=== PATIENT | male | born 1985 | race Caucasian/White ===

== ENCOUNTER 2018-05-02 19:40 | Observation (INO) ==
[2018-05-02] MEDS ORDERED: 0.9 % Sodium Chloride 1,000 ML IVC ONE (19:51)
[2018-05-02 20:15] LABS: Basophils % 0.3 %; Eosinophils % 0.6 %; Hematocrit 38.9 % (37.5-50.1); Hemoglobin 13.3 g/dL (12.9-16.9); Immature Granulocytes % 0.4 % (0-4); Lymphocytes # 1.1 K/mcL (0.6-4.6); Lymphocytes % 15.5 %; Mean Corpuscular HGB Conc 34.2 g/dL (31.6-35.5); Mean Corpuscular Hemoglobin 29.9 pg (28.0-33.3); Mean Corpuscular Volume 87.4 fL (83.0-100.0); Mean Platelet Volume 9.1 fL (9.4-12.4); Monocytes # 0.3 K/mcL (0.0-1.3); Monocytes % 4.8 %; Neutrophils # 5.4 K/mcL (1.6-8.9); Platelet Count 204 K/mcL (140-400); Red Blood Count 4.45 M/mcL (4.19-5.50); Red Cell Distribution Width 13.3 % (11.5-14.5); Segmented Neutrophils % 78.4 %
[2018-05-02 20:20] LABS: INR 1.1; Prothrombin Time 11.9 Seconds (9.4-12.1)
[2018-05-02 20:23] LABS: Activated Partial Thrombo Time 25.3 Seconds (26.0-36.0)
--- NOTE | 2018-05-02 20:25 | Emergency Department Note ---
Disposition Clinical Impression: Seizure, Intoxication Altered mental status Qualifiers: Altered mental status type: unspecified Qualified Code(s): R41.82 - Altered mental status, unspecified Disposition: Admitted As Inpatient Condition: Good Referrals: Tayler Mercado CNP [Primary Care Provider] - Forms: ED Satisfaction Letter General Adult HPI - General Chief complaint: ED Seizure Stated complaint: previously unresponsive Time Seen by Provider: 05/02/18 19:47 Source: patient, EMS Mode of arrival: EMS Limitations: no limitations Nursing Notes Reviewed: Yes Vital Signs Reviewed: Yes - History of Present Illness HPI Narrative: 32-year-old male history of chronic back issues who presents to the ER with a complaint of initially unresponsive. History is obtained by the patient's brother who is EMS here. States that he went over to check on his mother after he did not return a phone call. Found him unresponsive in the recliner. States that they checked his sugar twice and it was 16. He received IM glucagon and improved. His repeat was 116. States that on the way here he had a 3 minute generalized tonic-clonic seizure. Reports that he last been seen about an hour ago when he was mowing his grass. He had a bottle of Everclear in the room and believes he had 2 cups. Reports that he had seizures before associated with drinking. He is not on antiepileptic medications. The patient presents alert and oriented 3 however drowsy. He does follow commands. He voices no complaints except for feeling cold at this time. Pt Subjective Complaint: Unresponsive Onset (ago): unknown Pain Scale: 0 Improves with: nothing Worsens with: nothing Associated symptoms: Reports: denies other symptoms Treatments Prior to Arrival: none - Related Data Home Medications Medication Instructions Recorded Confirmed Gabapentin [Neurontin] 600 mg PO TID 05/02/18 05/02/18 Allergies Allergy/AdvReac Type Severity Reaction Status Date / Time tramadol Allergy Anaphylaxis Verified 01/04/17 09:50 All systems ED: reviewed and negative except as stated. Cardiovascular: Denies: chest pain Respiratory: Denies: dyspnea Gastrointestinal: Denies: abdominal pain, nausea, vomiting Musculoskeletal: Reports: back pain (Chronic) Neurological: Reports: other (Seizure). Denies: headache, numbness, paresthesias Past Medical History - Past Medical History Attestation: Yes The following information was validated with the patient. Source: patient, obtained from family Medical history: Reports: diabetes Psychiatric history: Reports: no psych history - Social History Smoking Status: Former smoker Smokeless Tobacco Status: No Alcohol use: Reports: occasionally Drug use: Reports: none Physical Exam - General Limitations: no limitations General appearance: alert, other (Somnolent) - Head Head exam: atraumatic, normocephalic, normal inspection - Eye Eye exam: Present: normal appearance, PERRL, EOMI - ENT ENT exam: normal exam - Neck Neck exam: Present: normal inspection - Chest Chest inspection: Present: normal inspection, symmetric chest wall rise - Respiratory Respiratory exam: Present: normal lung sounds bilaterally - Cardiovascular Cardiovascular exam: Present: regular rate, normal rhythm, normal heart sounds - Abdominal Exam Abdominal exam: Present: soft, Non-Tender. Absent: tenderness, distention, rigidity - Extremities Exam Extremities exam: Present: normal inspection, full ROM - Expanded Upper Extremity Exam Shoulder exam: Present: normal inspection, full ROM Arm exam: Present: normal inspection, full ROM Elbow exam: Present: normal inspection, full ROM Forearm/Wrist exam: Present: normal inspection, full ROM Hand exam: Present: normal inspection, full ROM - Expanded Lower Extremity Exam Hip/Pelvis exam: Present: normal inspection, full ROM Upper leg exam: Present: normal inspection, full ROM Knee exam: Present: normal inspection, full ROM Lower leg exam: Present: normal inspection, full ROM Ankle exam: Present: normal inspection, full ROM Foot/toe exam: Present: normal inspection, full ROM Neurovascular/Tendon exam: Absent: motor deficit, sensory deficit - Neurological Exam Neurological exam: Present: alert, oriented X3, CN II-XII intact - Expanded Neurological Exam Patient oriented to: Present: person, place, time Cranial nerves: EOM function (II, III, IV, ): Normal, facial sensation (V): Normal, spinal accessory function (XI): Normal, tongue deviation (XII): Normal Motor strength - LUE: 5/5 Motor strength - RUE: 5/5 Motor strength - LLE: 5/5 Motor strength - RLE: 5/5 Sensory exam upper extremity: light touch: Normal Sensory exam lower extremity: light touch: Normal Coma Scale Eye Opening: Spontaneous Coma Scale Motor Response: Obeys Commands Coma Scale Verbal Response: Oriented Coma Scale Total: 15 - Skin Skin exam: Present: warm, dry Course Course Narrative: Patient seen and examined. Vital signs reviewed. He did receive 5 mg of IV Versed prior to arrival for seizure. He is somnolent here whether or not this is secondary to a post ictal state, alcohol withdrawal or from Versed is to be determined. Plan for CT of his head, EKG, labs, likely admission for altered mental status and initially unresponsive. Vital Signs Temperature 97.7 F 05/02/18 19:41 Pulse Rate 97 05/02/18 19:41 Respiratory Rate 20 05/02/18 19:41 Blood Pressure 142/98 05/02/18 19:41 O2 Sat by Pulse Oximetry 100 05/02/18 19:41 Temperature 97.7 F 05/02/18 19:41 Pulse Rate 94 05/02/18 20:24 Respiratory Rate 16 05/02/18 20:24 Blood Pressure 121/97 05/02/18 20:24 O2 Sat by Pulse Oximetry 100 05/02/18 20:24 Oxygen Delivery Oxygen Delivery Room Air Medical Decision Making - MDM Narrative Medical decision making narrative: 32-year-old male presenting to the ER being unresponsive and hypoglycemic. Initially 16 on first check by responders. Currently not on any insulin therapy. He also had alcohol open there. He did have one seizure in route abated with Versed. It sounds like he has had seizures before with alcohol ingestion. He is alert and oriented 3 here. He is somnolent likely multifactorial from potential seizure as well as Versed administration. He has no focal deficits. Head CT is negative for acute findings. His labs are grossly unremarkable demonstrating that he is intoxicated. Patient admitted to the hospitalist service. - Lab Data Lab results reviewed: Yes I reviewed the patient's lab results. Result diagrams: 05/02/18 20:03 05/02/18 20:03 Lab Results 05/02/18 05/02/18 05/02/18 Range/Units 19:44 20:03 20:03 WBC 6.9 (4.3-11.1) K/mcL RBC 4.45 (4.19-5.50) M/mcL Hgb 13.3 (12.9-16.9) g/dL Hct 38.9 (37.5-50.1) % MCV 87.4 (83.0-100.0) fL MCH 29.9 (28.0-33.3) pg MCHC 34.2 (31.6-35.5) g/dL RDW 13.3 (11.5-14.5) % Plt Count 204 (140-400) K/mcL MPV 9.1 L (9.4-12.4) fL Immature Gran % 0.4 (0-4) % Seg Neutrophils % 78.4 % Lymphocytes % 15.5 % Monocytes % 4.8 % Eosinophils % 0.6 % Basophils % 0.3 % Neutrophils # 5.4 (1.6-8.9) K/mcL Lymphocytes # 1.1 (0.6-4.6) K/mcL Monocytes # 0.3 (0.0-1.3) K/mcL Eosinophils # 0.0 (0.0-0.6) K/mcL Basophils # 0.0 (0.0-0.2) K/mcL PT 11.9 (9.4-12.1) Seconds INR 1.1 APTT 25.3 L (26.0-36.0) Seconds Sodium (136-145) mEq/L Potassium (3.5-5.1) mEq/L Chloride (98-107) mEq/L Carbon Dioxide (23-29) mEq/L BUN (6-20) mg/dL Creatinine (0.70-1.30) mg/dL Est GFR ( Amer) (> 60) Est GFR (Non-Af Amer) (> 60) BUN/Creatinine Ratio (6-26) Glucose (70-105) mg/dL POC Glucose 110 H (70-99) mg/dL Calculated Osmolality (280-300) Calcium (8.6-10.3) mg/dL Total Bilirubin (0.3-1.0) mg/dL Direct Bilirubin (0.0-0.2) mg/dL Indirect Bilirubin (0.0-1.2) mg/dL AST (13-39) Units/L ALT (7-52) Units/L Alkaline Phosphatase (34-104) Units/L Ammonia (16-53) mcmol/L Creatine Kinase (30-223) Units/L Troponin I (< 0.04) ng/mL Serum Total Protein (6.4-8.9) g/dL Albumin (3.5-5.7) g/dL Globulin (2.4-3.5) g/dL Albumin/Globulin Ratio (1.1-2.2) TSH (0.340-5.600) mcIU/mL Ethyl Alcohol (Less than 10) mg/dL 05/02/18 05/02/18 Range/Units 20:03 20:03 WBC (4.3-11.1) K/mcL RBC (4.19-5.50) M/mcL Hgb (12.9-16.9) g/dL Hct (37.5-50.1) % MCV (83.0-100.0) fL MCH (28.0-33.3) pg MCHC (31.6-35.5) g/dL RDW (11.5-14.5) % Plt Count (140-400) K/mcL MPV (9.4-12.4) fL Immature Gran % (0-4) % Seg Neutrophils % % Lymphocytes % % Monocytes % % Eosinophils % % Basophils % % Neutrophils # (1.6-8.9) K/mcL Lymphocytes # (0.6-4.6) K/mcL Monocytes # (0.0-1.3) K/mcL Eosinophils # (0.0-0.6) K/mcL Basophils # (0.0-0.2) K/mcL PT (9.4-12.1) Seconds INR APTT (26.0-36.0) Seconds Sodium 138 (136-145) mEq/L Potassium 3.8 (3.5-5.1) mEq/L Chloride 105 (98-107) mEq/L Carbon Dioxide 23 (23-29) mEq/L BUN 16 (6-20) mg/dL Creatinine 0.73 (0.70-1.30) mg/dL Est GFR ( Amer) > 60 (> 60) Est GFR (Non-Af Amer) > 60 (> 60) BUN/Creatinine Ratio 22 (6-26) Glucose 119 H (70-105) mg/dL POC Glucose (70-99) mg/dL Calculated Osmolality 288 (280-300) Calcium 8.8 (8.6-10.3) mg/dL Total Bilirubin 0.6 (0.3-1.0) mg/dL Direct Bilirubin 0.1 (0.0-0.2) mg/dL Indirect Bilirubin 0.5 (0.0-1.2) mg/dL AST 18 (13-39) Units/L ALT 16 (7-52) Units/L Alkaline Phosphatase 36 (34-104) Units/L Ammonia 27 (16-53) mcmol/L Creatine Kinase 109 (30-223) Units/L Troponin I < 0.03 (< 0.04) ng/mL Serum Total Protein 6.3 L (6.4-8.9) g/dL Albumin 4.6 (3.5-5.7) g/dL Globulin 1.7 L (2.4-3.5) g/dL Albumin/Globulin Ratio 2.7 H (1.1-2.2) TSH 0.992 (0.340-5.600) mcIU/mL Ethyl Alcohol 172 H (Less than 10) mg/dL - Radiology Data Radiology results reviewed: Yes I reviewed the patient's radiology results. Chest X-Ray 05/02/18 19:51 IMPRESSION: No acute cardiopulmonary disease. D/ / Jerzy Mckenna MD / Jerzy Mckenna MD Interpreting Provider: Jerzy Mckenna MD Head CT 05/02/18 19:52 IMPRESSION: No acute intracranial abnormality. D/ / James Stephenson MD / James Stephenson MD Interpreting Provider: James Stephenson MD - EKG Data EKG #1 EKG attestation: Yes I reviewed and interpreted this EKG. EKG results narrative: EKG demonstrates sinus rhythm with a rate of 94 bpm. Normal axis. Normal intervals. Normal R-wave progression. RSR pattern septal leads. No gross ST elevations or depressions. No acute ischemic findings. No significant changes from previous EKG dated 11/26/09. S.B.A.R. - S.B.A.R. Situation: Demographics, MOA Background: Presenting Complaint, Relevant PMH, Meds, & Allergies Assessment: Course and respsone to treatment, Exam Concerns, Patient/Family Expectation, Pertinant Lab Results Recommendation: Barrier(s) to disposition, Recommendation based on pending studies, treatments, or consults S.B.A.R. Report Given to: Dr. Abhinav Rueda Repor Time: 21:24 Attestation Statement - Attestation Attestation: I examined this patient and my medical decision-making was reviewed with the Resident Physician, Dr. Sterling. I agree with the documented findings, disposition and treatment plan as described except to the extent set forth below. Patient is a 32-year-old white male who presents emergency permit today by EMS after his brother found him unresponsive at home. Patient's brother states he pulled into the driveway he lives near by his brother, saw the lawnmower running in the yard the door was open and the patient was lying on the floor unresponsive. Patient does not member how he got back into the house the last thing he remembers is mowing the yard. His brother is in EMS medic and attempted sternal rub and he was unresponsive did not check and it was 14 patient was given glucagon and sugar with increased responsiveness. Patient ultimately had a generalized tonic-clonic seizure was given 5 mg of Versed and arrived to the ED awake verbally responsive without focal neuro deficits but drowsy. Patient denies any complaints no headaches no chest pain or shortness of breath no nausea vomiting and no complaints of pain related to any fall or collapse. His brother states that he found Everclear and patient admits to having 2 cups of this which she self medicates for back pain. Brother denies any chronic alcohol history. He does state that he has a history of labile blood sugars. I agree with patient's physical exam findings as documented, vital signs are stable. Patient underwent lab evaluation chest x-ray EKG and CT head. Patient positive EtOH on board blood sugars stable, CT head was unremarkable remainder of workup the ED is unremarkable at this time he has had no recurrent seizure activity. Patient will be admitted for further evaluation case was discussed with hospitalist service patient hemodynamically stable at this time.
[2018-05-02 20:38] LABS: Troponin I < 0.03 ng/mL (< 0.04)
[2018-05-02 20:40] LABS: Alanine Aminotransferase 16 Units/L (7-52); Albumin 4.6 g/dL (3.5-5.7); Albumin/Globulin Ratio 2.7 (1.1-2.2); Alkaline Phosphatase 36 Units/L (34-104); Aspartate Amino Transferase 18 Units/L (13-39); BUN/Creatinine Ratio 22 (6-26); Bilirubin,Direct 0.1 mg/dL (0.0-0.2); Bilirubin,Indirect 0.5 mg/dL (0.0-1.2); Bilirubin,Total 0.6 mg/dL (0.3-1.0); Blood Urea Nitrogen 16 mg/dL (6-20); Calcium 8.8 mg/dL (8.6-10.3); Carbon Dioxide 23 mEq/L (23-29); Chloride 105 mEq/L (98-107); Creatine Kinase 109 Units/L (30-223); Ethanol 172 mg/dL (Less than 10); Globulin 1.7 g/dL (2.4-3.5); Glucose 119 mg/dL (70-105); Osmolality,Calculated 288 (280-300); Potassium 3.8 mEq/L (3.5-5.1); Sodium 138 mEq/L (136-145); Total Protein 6.3 g/dL (6.4-8.9); eGFR For Non-African Americans > 60 (> 60)
[2018-05-02 20:52] LABS: Thyroid Stimulating Hormone 0.992 mcIU/mL (0.340-5.600)
[2018-05-02 22:07] LABS: Bilirubin,Urine Negative (Negative); Blood,Urine Negative (Negative); Clarity,Urine Clear (Clear); Color,Urine Yellow (Yellow); Glucose,Urine (UA) Normal (Normal); Ketones,Urine Negative (Negative); Leukocyte Esterase,Urine Negative (Negative); Nitrite,Urine Negative (Negative); PH,Urine 6.5 pH Units (5.0-8.0); Protein,Urine Negative (Neg-Trace); Specific Gravity,Urine 1.009 (1.010-1.025); Urobilinogen,Urine Normal (Normal)
[2018-05-02 22:25] LABS: Amphetamine Screen,Urine Negative ng/mL (Cutoff=1000); Barbiturate Screen,Urine Negative ng/mL (Cutoff=200); Benzodiazepines Screen,Urine Positive ng/mL (Cutoff=200); Cannabinoid Screen,Urine Negative ng/mL (Cutoff = 50); Cocaine Screen,Urine Negative ng/mL (Cutoff= 300); Opiate Screen,Urine Negative ng/mL (Cutoff=300); Phencyclidine Screen,Urine Negative ng/mL (Cutoff=25)
[2018-05-03] MEDS: D5% in 0.9% NACL 1,000 ML IVC SCH ×2 (01:18→11:08)
[2018-05-03] MEDS ORDERED: *HR* LORazepam 2 MG/ML VIAL IVP PRN (02:10)
[2018-05-03] MEDS ORDERED: Acetaminophen 325 MG TABLET PO PRN (02:10)
[2018-05-03] MEDS ORDERED: Naloxone 0.4 MG/ML INJ IVP PRN (02:10)
--- NOTE | 2018-05-03 03:41 | Internal Med History&Physical ---
Date of Encounter: 05/03/18 Time of Encounter: 01:30 Internal Medicine - H&P: HPI Chief complaint: unresponsiveness; hypoglycemia Admitted From: Emergency Dept Plans for Post Hospital Care: Home History of present illness: Mr. Stveens is a 32 year old male who presents to the ER tonight after being found down and unresponsive at home by his brother. EMS was called and he reportedly had a glucose of 16. He was given dextrose and transferred to the ER by EMS. He reportedly had a witnessed seizure in the ambulance. Workup in ER revealed negative findings except for elevated alcohol level. CT of the head was negative and his repeat glucose was 110. He was subsequently admitted to hospitalist service. Upon my assessment of the patient, he was sleeping but easily arousable. He was a little groggy but appropriate and oriented 3. His girlfriend was present and confirmed above history. Regarding his alcohol intake, he admitted to having a few shots/glasses of Everclear yesterday while mowing the lawn. He denies daily, excessive alcohol intake. He does drink alcohol on occasion, mostly on weekends. He and his girlfriend both deny any prior history of excessive abuse and/or withdrawal from alcohol. He denies any illicit drug use. His girlfriend states he has had some issues in the past with hypoglycemia. He did not eat much yesterday and was due to eat dinner after mowing the lawn. However, due to the events noted above, he never did eat any meals. He and his girlfriend both confirm that he has been having some GI upset last month with stomach upset and profound diarrhea after any dietary intake. He denies any fevers, chills, night sweats, ill contacts exposure, or recent antibiotic use. He denies any gallbladder problems, heartburn, or history of ulcer disease. He has had some mild epigastric pain for the last month, however. He denies any unintentional weight loss. Past Med Surg Social Fam HX - Past Medical History Attestation: Yes The following information was validated with the patient. Source: patient, old records reviewed, obtained from family Additional medical history: hypoglycemia, scoliosis Psychiatric history: no psych history - Past Surgical History Additional surgical history: back injury, implanted pain pump - Social History Smoking Status: Former smoker Smokeless Tobacco Status: No Alcohol use: occasionally Drug use: none Current living situation: Home, With Family Activity Level: Independent ambulation Recent Out of Country Travel Within the Last 8 Weeks: No - Family History Mother Living Status: Still Living Father Living Status: Still Living Internal Medicine - H&P: Meds Gabapentin [Neurontin] 600 mg PO TID 05/02/18 [History] 3 Allergy/AdvReac Type Severity Reaction Status Date / Time tramadol Allergy Anaphylaxis Verified 01/04/17 09:50 - Constitutional Constitutional: no chills, no fever(s), no night sweats, no weight loss - EENT Eyes: no blurry vision, no change in vision Ears: no ear pain, no tinnitus Nose, mouth and throat: no nasal congestion, no sinus pressure, no sore throat - Cardiovascular Cardiovascular ROS IM: syncope, no chest pain, no dyspnea, no lightheadedness, no palpitations - Respiratory Respiratory: no cough, no hemoptysis, no chest congestion, no excessive phlegm production - Gastrointestinal Gastrointestinal: abdominal pain (epigastric), change in bowel habits, diarrhea , no coffee ground emesis, no heartburn, no hematemesis, no hematochezia, no melena, no nausea, no vomiting - Genitourinary Genitourinary ROS male: no dysuria, no flank pain, no hematuria - Musculoskeletal Musculoskeletal ROS IM: no arthralgias, no back pain - Integumentary Integumentary IM: no rash, no jaundice - Neurological Neurological ROS: convulsions, no dizziness, no focal weakness, no frequent falls, no headache(s) - Psychiatric Psychiatric: no anxiety, no depression - Endocrine Endocrine IM: no cold intolerance, no heat intolerance, no polydipsia, no polyphagia, no polyuria - Allergic/Immunologic Allergic/Immunologic: no wheezing, no GI upset with certain foods - Constitutional Vitals: Temp Pulse Resp BP Pulse Ox 98 F 82 16 110/69 98 05/03/18 03:19 05/03/18 03:19 05/03/18 03:19 05/03/18 03:19 05/03/18 03:19 General appearance: Present: cooperative, A&O X 3, pleasant, no acute distress, answers questions appropriately Exam: no acute distress - Head Head exam: Present: atraumatic, normal inspection - Eye Eye exam: Present: EOMI, PERRL. Absent: scleral icterus Pupils: Present: normal accommodation - ENT ENT exam: Present: mucous membranes dry, normal exam, normal oropharynx - Neck Neck exam general surgery: Present: full ROM, supple. Absent: tenderness, nuchal rigidity, thyromegaly - Respiratory Respiratory exam: Present: CTAB. Absent: chest wall tenderness, rales, rhonchi , wheezes - Cardiovascular Cardiovascular exam: Present: RRR, +S1, +S2. Absent: diastolic murmur, systolic murmur - GI/Abdominal GI/Abdominal exam: Present: normal bowel sounds, soft. Absent: guarding, hepatomegaly, mass, rebound, splenomegaly, tenderness - Extremities Exam Extremities exam: Present: full ROM, warm, radial pulses palpable and symmetrical. Absent: calf tenderness, pedal edema, tenderness - Back Exam Back exam: Absent: CVA tenderness (L), CVA tenderness (R) - Neurological Exam Neurological exam: Present: alert, CN II-XII intact, oriented X3, no focal deficits, strengths equal and symetr throughout - Psychiatric Psychiatric exam: Present: normal affect, normal mood - Skin Skin exam: Present: dry, intact, warm. Absent: rash Internal Med - H&P Results - Labs CBC & Chem 7: 05/02/18 20:03 05/02/18 20:03 Labs: UDS negative except for BZD (received in ambulance for seizure) - EKG Data -: EKG Interpreted by Myself - EKG Data Prior EKG available for review: no EKG comments: 05/03/18 04:01 NSR; no acute ST-T changes - Diagnostic Studies Chest x-ray Status: image reviewed by me (negative) - Assessment and plan (1) Seizure Current Visit: Yes Status: Acute Assessment and plan: 1. Likely due to hypoglycemia. 2. Will order MRI brain, EEG, and neurology consultation. 3. Seizure precautions. (2) Hypoglycemia Current Visit: Yes Status: Acute Assessment and plan: 1. Will monitor with hourly glucose checks for now. 2. IVF with dextrose initiated. 3. Patient will need to eat 3 meals per day with likely snacks in between. May need nutrition consult. 4. If hypoglycemia persists, he may need further GI/endocrine work-up. (3) Intoxication Current Visit: Yes Status: Acute Assessment and plan: 1. Will hydrate with IVF and monitor clinically. 2. Patient and girlfriend deny excessive alcohol use and/or abuse. 3. Will place on CIWA protocol and monitor clinically. 4. Will place on Folate, MVI, thiamine. (4) DVT prophylaxis Current Visit: Yes Status: Acute Assessment and plan: 1. Heparin SQ.
[2018-05-03 04:14] LABS: Basophils % 0.5 %; Eosinophils # 0.1 K/mcL (0.0-0.6); Eosinophils % 2.6 %; Hematocrit 39.1 % (37.5-50.1); Hemoglobin 12.8 g/dL (12.9-16.9); Immature Granulocytes % 0.3 % (0-4); Lymphocytes # 1.5 K/mcL (0.6-4.6); Lymphocytes % 38.5 %; Mean Corpuscular HGB Conc 32.7 g/dL (31.6-35.5); Mean Corpuscular Volume 88.5 fL (83.0-100.0); Mean Platelet Volume 9.5 fL (9.4-12.4); Monocytes # 0.3 K/mcL (0.0-1.3); Monocytes % 7.9 %; Platelet Count 212 K/mcL (140-400); Red Blood Count 4.42 M/mcL (4.19-5.50); Red Cell Distribution Width 13.3 % (11.5-14.5); Segmented Neutrophils % 50.2 %
[2018-05-03 04:34] LABS: Alanine Aminotransferase 13 Units/L (7-52); Albumin 4.1 g/dL (3.5-5.7); Albumin/Globulin Ratio 2.6 (1.1-2.2); Alkaline Phosphatase 35 Units/L (34-104); Amylase 61 Units/L (29-103); Aspartate Amino Transferase 16 Units/L (13-39); BUN/Creatinine Ratio 18 (6-26); Bilirubin,Total 0.5 mg/dL (0.3-1.0); Blood Urea Nitrogen 14 mg/dL (6-20); Calcium 9.1 mg/dL (8.6-10.3); Carbon Dioxide 24 mEq/L (23-29); Chloride 110 mEq/L (98-107); Globulin 1.6 g/dL (2.4-3.5); Glucose 87 mg/dL (70-105); Lipase 10 Units/L (11-82); Magnesium 2.1 mg/dL (1.6-2.6); Osmolality,Calculated 300 (280-300); Potassium 4.3 mEq/L (3.5-5.1); Sodium 145 mEq/L (136-145); Total Protein 5.7 g/dL (6.4-8.9); eGFR For Non-African Americans > 60 (> 60)
[2018-05-03] MEDS ORDERED: Pantoprazole 40 MG VIAL IVP SCH (06:00)
[2018-05-03] MEDS ORDERED: *HR* Heparin 5,000 UNIT/ML VIAL SQ SCH (06:00)
--- NOTE | 2018-05-03 08:30 | Event Note ---
Date of Encounter: 05/03/18 Time of Encounter: 08:30 32 yo M came in with ams with severe hypoglycemia and seizures s/p alcohol consumption Exam NAD this am Plan 1. Seizures unclear etiolgy possibly related to hypoglycemia which was likely alcohol induced. Obtain cortisol , A1c , hypoglycemic panel to investigate for possible etiology of hypogylcemia. May be alcohol induced as patient consumed a very strong drink. Monitor sugars. regular diet. Neuro recs for initiation of antiseizure meds and possible EEG. CT head negative 2. Alcohol abuse. Place on CIWA protocol. Monitor for signs of withdrawal 3. DVT prophylaxis. Heparin
[2018-05-03] MEDS ORDERED: Thiamine (B-1) 100 MG TABLET PO SCH (09:00)
[2018-05-03] MEDS ORDERED: Folic Acid 1 MG TABLET PO SCH (09:00)
[2018-05-03] MEDS ORDERED: Vitamin B Complex/Vit C/Vit E 1 EACH TABLET PO SCH (09:00)
[2018-05-03] MEDS ORDERED: Gabapentin 300 MG CAPSULE PO SCH (09:00)
--- NOTE | 2018-05-03 10:34 | Neurology - Consult Note ---
<AlejoSepideh N - Last Filed: 05/03/18 11:23> Date of Encounter: 05/03/18 Time of Encounter: 10:34 Assessment and Plan (1) Seizure Current Visit: Yes Status: Acute 32-year-old male with episode of profound hypoglycemia and subsequent seizure. Patient reports history of hypoglycemic episodes, but denies any history of seizures and does not recall the events that led to him becoming unresponsive. He denies having access to insulin, denies any new medications. Urine tox was positive for benzos and alcohol, but reportedly patient denies excess alcohol use. Physical examination unremarkable for any focal neurological findings, and EEG was normal. -Suspect patient's syncope, unresponsiveness, and reported seizure may be secondary to hypoglycemic episode. -Patient's urine tox was positive for alcohol and benzodiazepines, no withdrawal symptoms at this time. History of Present Illness Chief complaint: Seizure HPI: Mr. Stevens is a 32 year old male who was admitted to the hospital after being found unresponsive at home. Reportedly patient had a glucose reading of 16 collected by the EMS on site. He also reportedly had a witnessed seizure en route to the hospital. Patient was given dextrose and repeat glucose readings in the ED were within normal range. CT head on admission was negative. Patient reports that he experiences hypoglycemic episodes often, he does not monitor his blood glucose readings, but in the past has used a glucometer from a family member and reported low glucose readings. However he has never had a glucose reading this low before. He states that when he experiences what he believes to be hypoglycemic episodes he becomes weak and lightheaded, the symptoms resolve after he eats. Denies any unilateral weakness, shaking, facial droop, slurred speech, or confusion during these episodes. He does report some changes in vision saying he sees "dots of light ". He denies any previous history of seizures. He does admit to a history of chronic migraines that he experiences on a daily basis at night and in the mornings. He explains that they are usually unilateral however alternate between the left and right side. EKG performed today shows a normal awake and drowsy EEG. Pending MRI. This morning the patient is awake and alert. He reports no similar symptoms overnight. Past Med Surg Social Fam HX - Past Medical History Medical history: diabetes Additional medical history: hypoglycemia, scoliosis Psychiatric history: no psych history - Past Surgical History Additional surgical history: back injury, implanted pain pump - Social History Smoking Status: Former smoker Smokeless Tobacco Status: No Alcohol use: occasionally Drug use: none - Family History Mother Living Status: Still Living Father Living Status: Still Living Medications and Allergies Gabapentin [Neurontin] 600 mg PO TID 05/02/18 [History] Ibuprofen 800 mg PO TID 05/03/18 [History] Oxybutynin Chloride [Ditropan Xl] 10 mg PO BID 05/03/18 [History] 3 Allergy/AdvReac Type Severity Reaction Status Date / Time tramadol Allergy Anaphylaxis Verified 01/04/17 09:50 All Systems: The remainder of the systems were reviewed and are negative - Constitutional Constitutional ROS IM: as per HPI Physical Examination - Vital Signs Vital Signs: Initial Vital Signs Temp Pulse Resp BP Pulse Ox 97.7 F 97 20 142/98 100 05/02/18 19:41 05/02/18 19:41 05/02/18 19:41 05/02/18 19:41 05/02/18 19:41 - Exam Exam: Constitutional: Alert and awake, sitting comfortably in bed, makes poor eye contact, mildly flat affect Neurological: -Cranial nerves: II-XII grossly intact. No facial droop, slurred speech, or any focal neurological deficits. -Upper extremities: sensation and strength are full and intact bilaterally. Biceps reflexes are 2/4 and symmetric. No pronator drift. -Lower extremities: Sensation and strength are full and intact bilaterally. Patellar reflexes are 2/4 and symmetric. Heel to palacios movements are normal. Results - Laboratory Findings CBC and BMP: 05/03/18 03:17 05/03/18 03:17 Abnormal lab findings: Abnormal lab results WBC 3.9 K/mcL (4.3-11.1) L 05/03/18 03:17 Hgb 12.8 g/dL (12.9-16.9) L 05/03/18 03:17 APTT 25.3 Seconds (26.0-36.0) L 05/02/18 20:03 Chloride 110 mEq/L (98-107) H 05/03/18 03:17 Serum Total Protein 5.7 g/dL (6.4-8.9) L 05/03/18 03:17 Globulin 1.6 g/dL (2.4-3.5) L 05/03/18 03:17 Albumin/Globulin Ratio 2.6 (1.1-2.2) H 05/03/18 03:17 Lipase 10 Units/L (11-82) L 05/03/18 03:17 Ur Specific [place] 1.009 (1.010-1.025) L 05/02/18 22:00 U Benzodiazepines Scrn Positive ng/mL (Qnhzht=107) H 05/02/18 22:00 Ethyl Alcohol 172 mg/dL (Less than 10) H 05/02/18 20:03 Consult Discharge Plan - Plan Referrals: [facility] [Provider Group] Tayler Mercado, CONSTRUCTION OPERATIONS MANAGER [Primary Care Provider] - <AmarilysAzarmanohar - Last Filed: 05/03/18 13:35> Date of Encounter: 05/03/18 History of Present Illness HPI: Mr. Stevens is a 32 year old male All Systems: The remainder of the systems were reviewed and are negative Physical Examination - Vital Signs Vital Signs: Initial Vital Signs Temp Pulse Resp BP Pulse Ox 97.7 F 97 20 142/98 100 05/02/18 19:41 05/02/18 19:41 05/02/18 19:41 05/02/18 19:41 05/02/18 19:41 Results - Laboratory Findings CBC and BMP: 05/03/18 03:17 05/03/18 03:17 Abnormal lab findings: Abnormal lab results WBC 3.9 K/mcL (4.3-11.1) L 05/03/18 03:17 Hgb 12.8 g/dL (12.9-16.9) L 05/03/18 03:17 APTT 25.3 Seconds (26.0-36.0) L 05/02/18 20:03 Chloride 110 mEq/L (98-107) H 05/03/18 03:17 Serum Total Protein 5.7 g/dL (6.4-8.9) L 05/03/18 03:17 Globulin 1.6 g/dL (2.4-3.5) L 05/03/18 03:17 Albumin/Globulin Ratio 2.6 (1.1-2.2) H 05/03/18 03:17 Lipase 10 Units/L (11-82) L 05/03/18 03:17 Ur Specific [place] 1.009 (1.010-1.025) L 05/02/18 22:00 U Benzodiazepines Scrn Positive ng/mL (Xtdacr=091) H 05/02/18 22:00 Ethyl Alcohol 172 mg/dL (Less than 10) H 05/02/18 20:03
--- NOTE | 2018-05-03 10:37 | EEG/EMG/Oth Biometrics Report ---
EEG Procedure Report Date of procedure: 05/03/18 EEG Procedure: Routine EEG Procedure Note: This EEG was acquired with standard international 10-20 system with EKG recording. The background EEG activity was characterized by the presence of mixture of alpha, theta and delta activity with best frequency of 12 Hz. The background activity was reactive to eye openings. Sleep stages were not identified during this tracing. Drowsiness was characterized by drop off of posterior dominant Alpha rhythm. There are no electrographic seizures identified during this tracing. There are no epileptiform discharges and focal slowing noted during this recording. Photic stimulation and hyperventilation produced no abnormalities. EKG tracing showed no significant cardiac dysrhythmia. Impression: This is essentially a normal awake and drowsy EEG. Clinical Correlation: Normal EEGs, however, do not exclude epilepsy. Clinical correlation is advised.
[2018-05-03 11:39] VITALS: BP 122/85
--- NOTE | 2018-05-03 11:47 | Discharge Summary ---
Orders not resulted at time of discharge: Pending orders 05/03/18 02:10 MR head/brain wo con [MR] Routine 05/03/18 10:29 Hgb A1C Routine Hypoglycemic Panel Routine Date of Encounter: 05/03/18 Time of Encounter: 11:00 - Discharge Diagnosis (1) Seizure Priority: Primary Status: Acute Assessment and Plan: 32 year old male who presents to the ER tonight after being found down and unresponsive at home by his brother. EMS was called and he reportedly had a glucose of 16. He was given dextrose and transferred to the ER by EMS. He reportedly had a witnessed seizure in the ambulance. Workup in ER revealed negative findings except for elevated alcohol level. CT of the head was negative and his repeat glucose was 110. He was subsequently admitted to hospitalist service. He was assessed wih seizures unclear etiology possibly related to hypoglycemia which was likely alcohol induced. Cortisol and TSH levels came back WNL. Patient denies taking any hypoglycemic agents. A1c and hypoglycemia panel ordered to investigate for other possible causes of hypogylcemia. He also had an EEG done which came back negative and was seen by neurology who determined he doesn't need to be on seizure meds. CT head was also negative He was counseled to follow up with his PCP (2) Intoxication Priority: Primary Status: Acute (3) Hypoglycemia Priority: Primary Status: Acute (4) DVT prophylaxis Priority: Primary Status: Acute Hospital course: Mr. Stevens is a 32 year old male - Time Spent with Patient Total time spent providing and/or coordinating discharge services: - Discharge Medications Home Medications: Gabapentin [Neurontin] 600 mg PO TID 05/02/18 [History] Ibuprofen 800 mg PO TID 05/03/18 [History] Oxybutynin Chloride [Ditropan Xl] 10 mg PO BID 05/03/18 [History] Allergies/Adverse Reactions: 3 Allergy/AdvReac Type Severity Reaction Status Date / Time tramadol Allergy Anaphylaxis Verified 01/04/17 09:50 Date of admission: 05/02/18 22:15 Primary care physician: Tayler Mercado CNP Consults: 05/03/18 04:04 Consult to Neurology [CONS] Routine Consulting Provider: [facility] Reason for Consult: seizure Call Completed: No 05/03/18 10:35 Consult to Interpret Exam [CONS] Routine Consulting Provider: Li,Siyun Consult to Interpret Exam: Interpret EEG - Constitutional Vitals: Temp Pulse Resp BP Pulse Ox 98.1 F 56 15 122/85 98 05/03/18 11:34 05/03/18 11:34 05/03/18 11:34 05/03/18 11:34 05/03/18 11:34 General appearance: Present: cooperative, A&O X 3, pleasant, no acute distress, answers questions appropriately Exam: no acute distress - Head Head exam: Present: atraumatic, normocephalic - Eye Eye exam: Present: PERRL, conjuntiva pink, sclera anicteric Pupils: Present: PERRL - Neck Neck exam general surgery: Present: supple, trachea midline. Absent: lymphadenopathy - Respiratory Respiratory exam: Present: CTAB. Absent: accessory muscle use, rales, rhonchi, wheezes - Cardiovascular Cardiovascular exam: Present: RRR, +S1, +S2. Absent: diastolic murmur, gallop, rubs, systolic murmur - GI/Abdominal GI/Abdominal exam: Present: normal bowel sounds, soft, no peritoneal signs. Absent: distended, tenderness - Extremities Exam Extremities exam: Present: warm, radial pulses palpable and symmetrical. Absent : calf tenderness, cyanotic, pedal edema - Neurological Exam Neurological exam: Present: CN II-XII intact, oriented X3, no focal deficits. Absent: pronater drift, facial droop, speech deficit - Skin Skin exam: Present: dry, intact - Patient Status Disposition: Home, Self-Care Condition: Good - Discharge Instructions Follow Up With: [facility] [Provider Group] Tayler Mercado, VENDING MACHINE MECHANIC [Primary Care Provider] -
[2018-05-03 13:57] LABS: Estimated Average Glucose 100 mg/dl; Hemoglobin A1C 5.1 %
--- NOTE | 2018-05-04 14:00 | Electrocardiograph Report ---
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
[2018-05-08 12:02] LABS: Chlorpropamide NOT DETECTED ng/mL (Cutoff 100); Glimepiride NOT DETECTED ng/mL (Cutoff 5); Glipizide NOT DETECTED ng/mL (Cutoff 5); Glyburide NOT DETECTED ng/mL (Cutoff 5); Nateglinide NOT DETECTED ng/mL (Cutoff 5); Repaglinide NOT DETECTED ng/mL (Cutoff 5); Tolazamide NOT DETECTED ng/mL (Cutoff 100)
[2018-05-08 15:09] LABS: Tolbutamide NOT DETECTED ng/mL (Cutoff 100)
== END 2018-05-03 14:00 | disposition home or self-care (01) ==
LOC: 3BNU 19:40 → EMEROOARM 19:40 → 3BNU 22:52
PROVIDERS: ADMIT Pediatrics; ATTEND Pediatrics

== ENCOUNTER 2018-07-02 19:20 | Observation (INO) ==
--- NOTE | 2018-07-02 19:33 | Emergency Department Note ---
Disposition Clinical Impression: Altered mental status, Weakness Disposition: Admitted As Inpatient Condition: Good General Adult HPI - General Chief complaint: ED Altered Mental Status Stated complaint: AMS Time Seen by Provider: 07/02/18 19:27 Source: patient, EMS Limitations: no limitations - History of Present Illness Pain Scale: 0 - Related Data Home Medications Medication Instructions Recorded Confirmed RX: Gabapentin [Neurontin] 600 mg PO TID 05/02/18 05/03/18 RX: Ibuprofen 800 mg PO TID 05/03/18 05/03/18 RX: Oxybutynin Chloride [Ditropan 10 mg PO BID 05/03/18 05/03/18 Xl] Allergies Allergy/AdvReac Type Severity Reaction Status Date / Time tramadol Allergy Anaphylaxis Verified 01/04/17 09:50 Past Medical History - Past Medical History Medical history: Reports: diabetes Psychiatric history: Reports: no psych history - Social History Smoking Status: Former smoker Smokeless Tobacco Status: No Alcohol use: Reports: occasionally Drug use: Reports: none Physical Exam - General Limitations: no limitations General appearance: lethargic Course Vital Signs Temperature 99.6 F 07/02/18 19:25 Pulse Rate 105 07/02/18 19:25 Respiratory Rate 16 07/02/18 19:25 Blood Pressure 151/111 07/02/18 19:25 O2 Sat by Pulse Oximetry 99 07/02/18 19:25 Temperature 97.6 F 07/02/18 21:53 Pulse Rate 71 07/02/18 21:53 Respiratory Rate 16 07/02/18 21:53 Blood Pressure 130/74 07/02/18 21:53 O2 Sat by Pulse Oximetry 98 07/02/18 21:53 Oxygen Delivery Oxygen Delivery Room Air Medical Decision Making - Lab Data Result diagrams: 07/02/18 19:52 07/02/18 19:52 Lab Results 07/02/18 07/02/18 07/02/18 Range/Units 19:52 19:52 19:52 WBC 5.6 (4.3-11.1) K/mcL RBC 4.21 (4.19-5.50) M/mcL Hgb 12.5 L (12.9-16.9) g/dL Hct 36.8 L (37.5-50.1) % MCV 87.4 (83.0-100.0) fL MCH 29.7 (28.0-33.3) pg MCHC 34.0 (31.6-35.5) g/dL RDW 13.2 (11.5-14.5) % Plt Count 231 (140-400) K/mcL MPV 9.0 L (9.4-12.4) fL PT 12.3 H (9.4-12.1) Seconds INR 1.1 APTT 29.0 (26.0-36.0) Seconds Sodium 134 L (136-145) mEq/L Potassium 4.3 (3.5-5.1) mEq/L Chloride 104 (98-107) mEq/L Carbon Dioxide 24 (23-29) mEq/L BUN 16 (6-20) mg/dL Creatinine 0.81 (0.70-1.30) mg/dL Est GFR ( Amer) > 60 (> 60) Est GFR (Non-Af Amer) > 60 (> 60) BUN/Creatinine Ratio 20 (6-26) Glucose 89 (70-105) mg/dL Calculated Osmolality 279 L (280-300) Calcium 8.8 (8.6-10.3) mg/dL Troponin I < 0.03 (< 0.04) ng/mL Ethyl Alcohol < 10 (Less than 10) mg/dL Critical Care Time Critical Care Time: Yes Total Critical Care Time: 30 Attestation: I examined this patient and my medical decision-making was reviewed with the Resident Physician. I agree with the documented findings, disposition and treatment plan as described except to the extent set forth below. Attestation Statement - Attestation Attestation: I examined this patient and my medical decision-making was reviewed with the Resident Physician. I agree with the documented findings, disposition and treatment plan as described except to the extent set forth below. [id number] time provided Patient arrives by EMS from home. He states he feels diffusely weak and has spasms involving his right side. He feels like he has been like this "for a couple hours." He is a limited historian The patient was evaluated shortly after his arrival to the medical treatment area. Additional information obtained from the paramedics at bedside. The patient tells me that he had a similar episode 2 months ago which I did confirm by reviewing her hospital discharge summaries. It appeared at that time he was hypoglycemic and had a suspected seizure, possibly secondary to alcohol intake. On exam tonight he has nonrhythmic, [id number] intermittent twitching of his right upper and right lower extremity. He is alert. Eyes are open. He does answer questions but slowly. He will move all 4 extremities but appears to do so with increased weakness Stroke alert activated 20:10: Telemedicine consultation initiated. The patient is not a TPA candidate as his symptoms are not consistent with an acute ischemic stroke. The patient will be admitted to the medicine service for observation and further care
[2018-07-02] MEDS ORDERED: Isovue-370 500 ML INFUS..BTL IV ONE (19:34)
--- NOTE | 2018-07-02 19:35 | Emergency Department Note ---
Disposition Clinical Impression: Weakness Altered mental status Qualifiers: Altered mental status type: unspecified Qualified Code(s): R41.82 - Altered mental status, unspecified Disposition: Admitted As Inpatient Condition: Good Referrals: NONE,PCP [Primary Care Provider] - Forms: ED Satisfaction Letter Time of Disposition: 20:34 Altered Mental Status HPI - General Chief Complaint: ED Altered Mental Status Stated Complaint: AMS Time Seen by Provider: 07/02/18 19:27 Source: patient, EMS Mode of arrival: EMS Limitations: no limitations Nursing Notes Reviewed: Yes Vital Signs Reviewed: Yes - History of Present Illness HPI Narrative: 32-year-old male history of diabetes presents to the emergency department via EMS for altered mental status. The patient states this is been going on for the past couple of hours. He is unable to give me his last known well. His girlfriend called for the ambulance but she will not be coming. Reports a history of seizures typically when his blood glucose level is low. His point of care glucose was 91 here. He is reporting weakness and twitching to his right side. Is also having troubles with speech and moving his mouth. He had a similar episode a few months ago. At this time stroke alert was initiated. On evaluation patient was slow to answer questions and follow commands. He was able to follow the commands when asked multiple times. He was able to lift his right arm off the bed. He was unable to lift the left arm up but was able to flex and extend his wrist and elbow. Similar with his lower extremities he was unable to lift it off the bed but was able to flex at the hips and knees. Patient had intact dorsiflexion and plantar flexion equal bilateral strength. No evidence of any trauma. Denies any recreational drug use. - Related Data Home Medications Medication Instructions Recorded Confirmed Gabapentin [Neurontin] 600 mg PO TID 05/02/18 05/03/18 Ibuprofen 800 mg PO TID 05/03/18 05/03/18 Oxybutynin Chloride [Ditropan Xl] 10 mg PO BID 05/03/18 05/03/18 Allergies Allergy/AdvReac Type Severity Reaction Status Date / Time tramadol Allergy Anaphylaxis Verified 01/04/17 09:50 Limitations: ROS unobtainable due to patients medical condition Past Medical History - Past Medical History Source: old records reviewed, nursing notes reviewed Medical history: Reports: diabetes Psychiatric history: Reports: no psych history - Social History Smoking Status: Former smoker Smokeless Tobacco Status: No Alcohol use: Reports: occasionally Drug use: Reports: none Physical Exam - General Limitations: altered mental status General appearance: lethargic, other (Sluggish and slow to respond) - Head Head exam: atraumatic, normocephalic, normal inspection - Eye Eye exam: Present: normal appearance, PERRL, EOMI - Neck Neck exam: Present: normal inspection, trachea midline - Chest Chest inspection: Present: normal inspection, symmetric chest wall rise - Respiratory Respiratory exam: Present: normal lung sounds bilaterally. Absent: respiratory distress, wheezes - Cardiovascular Cardiovascular exam: Present: regular rate, normal rhythm, normal heart sounds - Expanded Cardiovascular Exam Peripheral pulses: 2+: radial (R), radial (L) - Abdominal Exam Abdominal exam: Present: soft, Non-Tender. Absent: tenderness, distention, guarding, rebound, rigidity - Neurological Exam Neurological exam: Present: alert, other (There is occasional intermittent twitching to the right upper extremity that his brief for no more than 2 seconds, non-rhythmic, not tonic-clonic) - Expanded Neurological Exam Motor strength - LUE: 5/5 Motor strength - RUE: 5/5 Motor strength - LLE: 3/5 Motor strength - RLE: 3/5 Upper motor neuron exam: pronator drift: Absent bilaterally Coma Scale Eye Opening: Spontaneous Coma Scale Motor Response: Obeys Commands Coma Scale Verbal Response: Oriented Coma Scale Total: 15 - Psychiatric Psychiatric exam: Present: normal affect, normal mood - Skin Skin exam: Present: warm, dry, intact, normal color Course - Reevaluation(s) Reevaluation #1: Review of his labs are unremarkable. Etiology of his symptoms are unknown. Working diagnosis includes possible seizure post-ictal and less likely stroke. Consideration for possible adverse drug effect. Will add C-peptide to his history of similar presentation with hypoglycemia. - Consultations Consultation #1: Spoke to [place] radiology, no intracranial hemorrhage. The angiogram of the head and neck appeared unremarkable. Spoke to the neurosurgery physician at [facility] and agrees this could be possible seizure but agrees with likely not tPA candidate. Time: 20:08 Consultation #2: Patient was evaluated via tele-stroke by the urologist Dr. Mota, agrees this is not a typical stroke presentation. A neighbor who was with him today had just arrived. States last well-known approximately at 11 o'clock. He knows that the patient was progressively getting worse. He noticed twitching throughout his body and he was feeling gradually more weak. This was not ascribed is a sending weakness. No recent illness is reported. He did check his sugar level which read 70 and was given a Snickers bar and went up to 130. Patient does report gradual improvement of his symptoms. He is able to shake his head no which she was not able to do before. His mouth is more animated. He was able to hold his arms up without drift for 5 seconds. The neurologists agrees patient is not a TPA candidate. Does not fit a particular stroke pattern and likely he is not posted goal. Does recommend observation and possible further imaging such as MRI if not completely improved. Patient at this time has agreed to be admitted here for further observation for altered mental status. Time: 20:27 Consultation #3: Spoke with on-call hospitalist tashia Elizondo to admit for AMS, weakness. Agrees this is a complex case we will order C-peptide. Patient pending urine drug screen. Time: 20:50 Vital Signs Temperature 99.6 F 07/02/18 19:25 Pulse Rate 105 07/02/18 19:25 Respiratory Rate 16 07/02/18 19:25 Blood Pressure 151/111 07/02/18 19:25 O2 Sat by Pulse Oximetry 99 07/02/18 19:25 Temperature 99.6 F 07/02/18 19:25 Pulse Rate 99 07/02/18 20:08 Respiratory Rate 16 07/02/18 20:08 Blood Pressure 135/92 07/02/18 20:08 O2 Sat by Pulse Oximetry 99 07/02/18 19:25 Oxygen Delivery Oxygen Delivery Room Air Altered Mental Status - MDM Narrative Medical decision making narrative: Patient was discussed with my attending physician who agrees with ED management and final disposition. They independently evaluated the patient. Please refer to their attestation to this encounter for additional information. This note was generated by [employer] voice recognition software and as a result grammatical or spelling errors may occur using this program. - Medical Records Medical records reviewed: Yes I reviewed the patient's medical records. - Lab Data Lab results reviewed: Yes I reviewed the patient's lab results. Result diagrams: 07/02/18 19:52 07/02/18 19:52 Lab Results 07/02/18 07/02/18 07/02/18 Range/Units 19:52 19:52 19:52 WBC 5.6 (4.3-11.1) K/mcL RBC 4.21 (4.19-5.50) M/mcL Hgb 12.5 L (12.9-16.9) g/dL Hct 36.8 L (37.5-50.1) % MCV 87.4 (83.0-100.0) fL MCH 29.7 (28.0-33.3) pg MCHC 34.0 (31.6-35.5) g/dL RDW 13.2 (11.5-14.5) % Plt Count 231 (140-400) K/mcL MPV 9.0 L (9.4-12.4) fL PT 12.3 H (9.4-12.1) Seconds INR 1.1 APTT 29.0 (26.0-36.0) Seconds Sodium 134 L (136-145) mEq/L Potassium 4.3 (3.5-5.1) mEq/L Chloride 104 (98-107) mEq/L Carbon Dioxide 24 (23-29) mEq/L BUN 16 (6-20) mg/dL Creatinine 0.81 (0.70-1.30) mg/dL Est GFR ( Amer) > 60 (> 60) Est GFR (Non-Af Amer) > 60 (> 60) BUN/Creatinine Ratio 20 (6-26) Glucose 89 (70-105) mg/dL Calculated Osmolality 279 L (280-300) Calcium 8.8 (8.6-10.3) mg/dL Troponin I < 0.03 (< 0.04) ng/mL Ethyl Alcohol < 10 (Less than 10) mg/dL - Radiology Data Radiology results reviewed: Yes I reviewed the patient's radiology results. Head CT 07/02/18 19:30 IMPRESSION: 1. Unremarkable CTA of the head and neck. 2. No CT evidence of acute ischemia. 3. No intracranial hemorrhage or extra-axial fluid collection. Critical results were called by Dr. Dick Shin to Robert Galeano on 07/02/2018 at 20:06. D/ / Dick Shin / Dick Shin Interpreting Provider: Dick Shin Head CTA 07/02/18 19:34 IMPRESSION: 1. Unremarkable CTA of the head and neck. 2. No CT evidence of acute ischemia. 3. No intracranial hemorrhage or extra-axial fluid collection. Critical results were called by Dr. Dick Shin to Robert Galeano on 07/02/2018 at 20:06. D/ / Dick Shin / Dick Shin Interpreting Provider: Dick Shin Neck CTA 07/02/18 19:34 IMPRESSION: 1. Unremarkable CTA of the head and neck. 2. No CT evidence of acute ischemia. 3. No intracranial hemorrhage or extra-axial fluid collection. Critical results were called by Dr. Dick Shin to Robert Galeano on 07/02/2018 at 20:06. D/ / Dick Shin / Dick Shin Interpreting Provider: Dick Shin - EKG Data EKG attestation: Yes I reviewed and interpreted this EKG. EKG results narrative: EKG performed 1927 sinus tachycardia 04 beats per minute, normal axis, good R wave progression, no ST elevation or depression. Compared to prior EKG performed 11/26/2009 which shows similar consistent findings. No acute ischemic changes. TPA Checklist - Eligibilty for IV tPA 1. LKW equal to or less than 4.5 hours be before treatment: Yes 2. Clinical diagnosis of ischemic stroke causing deficit: No 3. Age 18 years or older: Yes - LKW: 3-4.5 hrs Add. Warnings/Precautions Patient/family understanding: The patient/family members have been counseled and understood the risk, benefit, and alternatives of treatment.
[2018-07-02 20:00] LABS: Hematocrit 36.8 % (37.5-50.1); Hemoglobin 12.5 g/dL (12.9-16.9); Mean Corpuscular Hemoglobin 29.7 pg (28.0-33.3); Mean Corpuscular Volume 87.4 fL (83.0-100.0); Platelet Count 231 K/mcL (140-400); Red Blood Count 4.21 M/mcL (4.19-5.50); Red Cell Distribution Width 13.2 % (11.5-14.5)
[2018-07-02 20:07] LABS: INR 1.1; Prothrombin Time 12.3 Seconds (9.4-12.1)
[2018-07-02 20:22] LABS: BUN/Creatinine Ratio 20 (6-26); Blood Urea Nitrogen 16 mg/dL (6-20); Calcium 8.8 mg/dL (8.6-10.3); Carbon Dioxide 24 mEq/L (23-29); Chloride 104 mEq/L (98-107); Ethanol < 10 mg/dL (Less than 10); Glucose 89 mg/dL (70-105); Osmolality,Calculated 279 (280-300); Potassium 4.3 mEq/L (3.5-5.1); Sodium 134 mEq/L (136-145); Troponin I < 0.03 ng/mL (< 0.04); eGFR For Non-African Americans > 60 (> 60)
[2018-07-02] MEDS ORDERED: Gadolinium Contrast Agent (WT Based) IV PRN (22:29)
[2018-07-02] MEDS ORDERED: Ringers Solution, Lactated 1,000 ML IVC SCH (22:45)
[2018-07-02] MEDS ORDERED: D5% in Lactated Ringers 1,000 ML IVC SCH (22:45)
--- NOTE | 2018-07-02 23:33 | Internal Med History&Physical ---
Date of Encounter: 07/03/18 Time of Encounter: 23:33 Internal Medicine - H&P: HPI Chief complaint: ams Admitted From: Home Plans for Post Hospital Care: Home History of present illness: Aleks Stevens is a 32-year-old man that history of chronic lumbago with an indwelling stimulator who has suffered multiple episodes of decreased level of consciousness and reported passing out in the setting of low blood sugar, admitted here 2 months ago found unresponsive at home and found to have a glycemia of 16. He was reported that there was a witnessed seizure on route to the hospital by EMS. His mental status improved with dextrose administration. Reported at the time that the frequent hypoglycemic episodes led him to become weak and lightheaded with resolution of symptoms after he would eat and therefore has been carrying glucose tablets. At the time he was also evaluated by neurology and had an EEG done with no abnormality seen. He is brought in now by EMS after his girlfriend called the ambulance because of weakness and twitching of the right side of his body with speech difficulty. Stroke alert was called and the ER however this counted after neurology evaluation from [facility]. His glucose on arrival here was 91. He denied any recreational drug use and his alcohol level is less than 10. Parameters were grossly within normal limits. His mental status gradually improved and is now up and talking. He does report ongoing weakness in his lower extremities but states that the numbness has reso lved. She had a head CT and CTA head and neck performed which were unremarkable. He is admitted for observation. Past Med Surg Social Fam HX - Past Medical History Medical history: diabetes Additional medical history: hypoglycemia, scoliosis Psychiatric history: no psych history - Past Surgical History Additional surgical history: back injury, implanted pain pump ("[employer] [employer] Pain Stimulator") - Social History Smoking Status: Former smoker Smokeless Tobacco Status: No Alcohol use: occasionally Drug use: none - Family History Mother Living Status: Still Living Father Living Status: Still Living Grandfather Living Status: Still Living Hx Family Cardiac Disorders: Yes (DE, cardiomyopathy) Hx Family Respiratory Disorders: No Hx Family Cancer: No Hx Family Endocrine Disorder: Yes (DM) Internal Medicine - H&P: Meds Gabapentin [Neurontin] 600 mg PO TID 05/02/18 [History] Ibuprofen 800 mg PO TID 05/03/18 [History] Oxybutynin Chloride [Ditropan Xl] 10 mg PO BID 05/03/18 [History] Allergy/AdvReac Type Severity Reaction Status Date / Time tramadol Allergy Anaphylaxis Verified 01/04/17 09:50 All Systems PM: A 10-system review of systems was performed and is negative for pertinent findings except as documented above in the HPI. Family history reviewed and found noncontributory. - Constitutional Vitals: Temp Pulse Resp BP Pulse Ox 97.6 F 71 16 130/74 98 07/02/18 21:53 07/02/18 21:53 07/02/18 21:53 07/02/18 21:53 07/02/18 21:53 Exam: Vitals: Reviewed General: Well-appearing, well-developed and in no acute distress Skin: Warm and supple. HEENT: Moist mucous membranes. No conjunctivae pallor. Neck: No lymphadenopathy. No JVD. No carotid bruits. No palpable thyroid. Chest: Normal thoracic expansion. Normal breath sounds. Clear to auscultation. Heart: Normal S1 & S2; rhythmic. No rubs or murmurs. Abdomen: Non-distended, soft and non-tender to palpation. No peritoneal reaction. Extremities: No clubbing, cyanosis or edema. No calf tenderness. Normal distal pulses. Neurological: Awake, alert and oriented to person, place and time. No focal deficits. Psych: Affect appropriate. Internal Med - H&P Results - Labs CBC & Chem 7: 07/02/18 19:52 07/02/18 19:52 Labs: Short CBC 07/02/18 Range/Units 19:52 WBC 5.6 (4.3-11.1) K/mcL Hgb 12.5 L (12.9-16.9) g/dL Hct 36.8 L (37.5-50.1) % Plt Count 231 (140-400) K/mcL BMP 07/02/18 19:52 Sodium 134 L Potassium 4.3 Chloride 104 Carbon Dioxide 24 BUN 16 Creatinine 0.81 Glucose 89 Calcium 8.8 Cardiac Enzymes 07/02/18 Range/Units 19:52 Troponin I < 0.03 (< 0.04) ng/mL - Impressions ITS Impressions Head CT 07/02/18 19:30 IMPRESSION: 1. Unremarkable CTA of the head and neck. 2. No CT evidence of acute ischemia. 3. No intracranial hemorrhage or extra-axial fluid collection. Critical results were called by Dr. Dick Shin to Robert Galeano on 07/02/2018 at 20:06. D/ / Dick Shin / Dick Shin Interpreting Provider: Dick Shin Head CTA 07/02/18 19:34 IMPRESSION: 1. Unremarkable CTA of the head and neck. 2. No CT evidence of acute ischemia. 3. No intracranial hemorrhage or extra-axial fluid collection. Critical results were called by Dr. Dick Shin to Robert Galeano on 07/02/2018 at 20:06. D/ / Dick Shin / Dick Shin Interpreting Provider: Dick Shin Neck CTA 07/02/18 19:34 IMPRESSION: 1. Unremarkable CTA of the head and neck. 2. No CT evidence of acute ischemia. 3. No intracranial hemorrhage or extra-axial fluid collection. Critical results were called by Dr. Dick Shin to Robert Galeano on 07/02/2018 at 20:06. D/ / Dick Shin / Dick Shin Interpreting Provider: iDck Shin - Assessment and plan (1) Altered mental status Current Visit: Yes Status: Acute Assessment and plan: This episode does not seem to be associated with hypoglycemia and has resolved spontaneously without intervention. It is noted that he had a barely low c- peptide level on his last admission which needs to be put into context however it was not in a fasted state. He will be evaluated by endocrine this week for the hypoglycemic issues. Ct scans were unremarkable. It does not appear he has had an MRI therefore will order one to rule out any anatomic problems causing these recurring episodes especially seeing as this was not related to hypoglycemia. Place on seizure and fall precautions. Qualifiers: Altered mental status type: unspecified Qualified Code(s): R41.82 - Altered mental status, unspecified (2) Overactive bladder Current Visit: Yes Status: Acute Assessment and plan: Will resume oxybutynin once dose is confirmed. (3) Lumbar radicular pain Current Visit: Yes Status: Chronic Assessment and plan: Will hold gabapentin for now pending monitoring of his mental status overnight. (4) DVT prophylaxis Current Visit: No Status: Acute Assessment and plan: SubQ heparin. - Time Spent With Patient Total time spent is greater than 50% in coordination of care (as documented) at patient's floor/unit and/or counseling patient: Greater than 35 minutes
[2018-07-03 05:37] LABS: Basophils % 0.4 %; Eosinophils # 0.1 K/mcL (0.0-0.6); Eosinophils % 1.1 %; Hematocrit 35.6 % (37.5-50.1); Hemoglobin 12.3 g/dL (12.9-16.9); Immature Granulocytes % 0.2 % (0-4); Lymphocytes # 1.7 K/mcL (0.6-4.6); Lymphocytes % 35.8 %; Mean Corpuscular HGB Conc 34.6 g/dL (31.6-35.5); Mean Corpuscular Hemoglobin 29.6 pg (28.0-33.3); Mean Corpuscular Volume 85.8 fL (83.0-100.0); Monocytes # 0.4 K/mcL (0.0-1.3); Monocytes % 9.4 %; Neutrophils # 2.5 K/mcL (1.6-8.9); Platelet Count 201 K/mcL (140-400); Red Blood Count 4.15 M/mcL (4.19-5.50); Red Cell Distribution Width 13.6 % (11.5-14.5); Segmented Neutrophils % 53.1 %
[2018-07-03] MEDS ORDERED: *HR* Heparin 5,000 UNIT/ML VIAL SQ SCH (06:00)
[2018-07-03 06:06] LABS: BUN/Creatinine Ratio 15 (6-26); Blood Urea Nitrogen 11 mg/dL (6-20); Calcium 8.7 mg/dL (8.6-10.3); Carbon Dioxide 26 mEq/L (23-29); Chloride 108 mEq/L (98-107); Glucose 120 mg/dL (70-105); Osmolality,Calculated 287 (280-300); Potassium 3.7 mEq/L (3.5-5.1); Sodium 138 mEq/L (136-145); eGFR For Non-African Americans > 60 (> 60)
[2018-07-03 07:00] VITALS: BP 114/69
--- NOTE | 2018-07-03 10:02 | Discharge Summary ---
<Juanita Penny - Last Filed: 07/03/18 11:45> - NOTES TO OUTPATIENT PROVIDER Notes to Outpatient Provider: Unable to obtain inpatient MRI due to spinal cord stimulator - consider outpatient MRI. Has initial visit with endocrinology for recurrent hypoglycemia 07/05. Outpatient f/u with neurology will be scheduled for seizure-like activity. Orders not resulted at time of discharge: Pending orders 07/02/18 19:30 Drug Screen, Urine [UCHEM] Stat 07/02/18 19:51 C-Peptide Stat Date of Encounter: 07/03/18 Time of Encounter: 09:59 - Discharge Diagnosis (1) Overactive bladder Priority: Secondary Status: Chronic (2) Lumbar radicular pain Priority: Secondary Status: Chronic (3) DVT prophylaxis Priority: Secondary Status: Acute Hospital course: Mr. Stevens is a 32 year old male who came to the ER via EMS due to right sided twitching and speech difficulty. History of hypoglycemia causing similar symptoms, but glucose was 89 in ER. Head and neck CTA unremarkable. Unable to obtain MRI due to stimulator. Patient is feeling better, however concern for seizure. Previous admission with normal EEG. - Time Spent with Patient Total time spent providing and/or coordinating discharge services: - Discharge Medications Home Medications: Gabapentin [Neurontin] 600 mg PO TID 05/02/18 [History] Ibuprofen 800 mg PO TID 05/03/18 [History] Oxybutynin Chloride [Ditropan Xl] 10 mg PO BID 05/03/18 [History] Allergies/Adverse Reactions: Allergy/AdvReac Type Severity Reaction Status Date / Time tramadol Allergy Anaphylaxis Verified 01/04/17 09:50 Date of admission: 07/02/18 20:53 Primary care physician: PCP NONE Discharging clinician: Juanita Penny Anticipated date of discharge: 07/03/18 - Constitutional Vitals: Temp Pulse Resp BP Pulse Ox 98.1 F 60 16 114/69 99 07/03/18 06:58 07/03/18 06:58 07/03/18 06:58 07/03/18 06:58 07/03/18 06:58 General appearance: Present: cooperative, pleasant, no acute distress Exam: . - Head Head exam: Present: atraumatic, normocephalic - Eye Eye exam: Present: PERRL, conjuntiva pink, sclera anicteric Pupils: Present: PERRL - Respiratory Respiratory exam: Present: CTAB. Absent: accessory muscle use, rales, rhonchi, wheezes - Cardiovascular Cardiovascular exam: Present: RRR, +S1, +S2. Absent: diastolic murmur, gallop, rubs, systolic murmur - GI/Abdominal GI/Abdominal exam: Present: normal bowel sounds, soft, no peritoneal signs. Absent: distended, tenderness - Extremities Exam Extremities exam: Present: warm. Absent: calf tenderness, cyanotic, pedal edema Additional comments: posterior tibial pulses 2/4 and symmetric - Neurological Exam Neurological exam: Present: CN II-XII intact, oriented X3, no focal deficits. Absent: pronater drift, facial droop, speech deficit - Skin Skin exam: Present: dry, intact - Patient Status Disposition: Home, Self-Care Condition: Good Functional capacity at discharge: independent ambulation Overall status at discharge: patient is back to baseline - Discharge Instructions Instructions: Diabetic Hypoglycemia (GEN), Lumbar Radiculopathy (GEN) Follow Up With: Robert Lorenzo DO [Partnered Physician] - 08/02/18 9:45 am Kinjal Panda MD [Partnered Physician] - 07/05/18 9:45 am - Diet and Activity Diet: regular diet <PhulaDaysi [email or web address] - Last Filed: 07/03/18 15:42> Orders not resulted at time of discharge: Pending orders 07/02/18 19:30 Drug Screen, Urine [UCHEM] Stat 07/02/18 19:51 C-Peptide Stat Date of Encounter: 07/03/18 - Discharge Diagnosis (1) Lumbar radicular pain Status: Chronic (2) Altered mental status Status: Resolved Qualifiers: Altered mental status type: unspecified Qualified Code(s): R41.82 - Altered mental status, unspecified (3) DVT prophylaxis Status: Acute (4) Overactive bladder Status: Chronic Hospital course: Mr. Stevens is a 32 year old male - Time Spent with Patient Total time spent providing and/or coordinating discharge services: Date of admission: 07/02/18 20:53 Primary care physician: PCP NONE - Constitutional Vitals: Temp Pulse Resp BP Pulse Ox 98.1 F 60 16 114/69 99 12/17/18 06:58 07/03/18 06:58 07/03/18 06:58 07/03/18 06:58 07/03/18 06:58 - Attending Attestation I examined this patient and my medical decision-making was reviewed with the Resident Physician Dr. Penny. I agree with the documented findings, disposition and treatment plan as described except to the extent set forth belo w. Mr. Stevens is a 32 year old male who came to the ER via EMS due to right sided twitching and speech difficulty. He was little confused too y/d when this episode happened. No bowel / urinary incontinence. Today he is alert, awake and O x 3. Denied any CP / SOB. His CT of Head, CTA of Head/ Neck did not show any acute intracranial abnormality. At this point we talked to neurology Dr. Panda who recommend to f/u with him as an out pt. Gen: A, A, O x 3 Chest: Diminished BS b/l Heart: S1S2+ RRR No murmurs Neuro: no neuro deficit noticed
--- NOTE | 2018-07-03 15:32 | Electrocardiograph Report ---
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
--- NOTE | 2018-07-03 15:32 | Electrocardiograph Report ---
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
== END 2018-07-03 11:22 | disposition home or self-care (01) ==
LOC: EMEROOARM 19:20 → 3BNU 19:20 → SUATTDRO 20:53 → 3BNU 21:35
PROVIDERS: ADMIT Family Medicine; ATTEND Family Medicine